=== PATIENT | female | born 1975 | race Caucasian/White ===

== ENCOUNTER → 2019-07-28 10:32 | Outpatient (CLI) | payer OTHER, SELFPAY ==
--- NOTE | ~2019-07-28 | MM_ITS ---
EXAMINATION: MM scrn erica implant BI w yana HISTORY: Screening mammogram TECHNIQUE: Craniocaudal and mediolateral oblique 3-D tomosynthesis images with implant displacement a nd synthetic 2-D images were generated. Craniocaudal and mediolateral oblique views of the breasts wi thout implant displacement were obtained using full field digital mammography. CAD analysis was submi tted and interpreted. COMPARISON: 06/09/2018, 05/09/2017, 05/01/2016 BREAST PARENCHYMAL COMPOSITION: There are scattered areas of fibroglandular density. FINDINGS: There is no evidence of suspicious mass, calcification, or architectural distortion to sugg est malignancy in either breast. There has been no suspicious interval change. IMPRESSION: 1. No mammographic evidence of malignancy. 2. Recommend routine screening mammography in one year. BI-RADS Category 2: Benign finding(s). Reviewed, dictated and finalized at location A. [employer]
== END ==
PROVIDERS: PCP Family Medicine; Visit Provider Obstetrics & Gynecology
DX: Z12.31 Encounter for screening mammogram for malignant neoplasm of breast (principal)
CPT/HCPCS: 77063; 77067

== ENCOUNTER → 2020-12-28 13:18 | Outpatient (CLI) | payer OTHER, SELFPAY ==
--- NOTE | ~2020-12-28 | MM_ITS ---
EXAMINATION: MM scrn erica implant BI w yana HISTORY: Screening mammogram TECHNIQUE: Craniocaudal and mediolateral oblique 3-D tomosynthesis images with implant displacement a nd synthetic 2-D images were generated. Craniocaudal and mediolateral oblique views of the breasts wi thout implant displacement were obtained using full field digital mammography. CAD analysis was submi tted and interpreted. COMPARISON: 07/28/2019, 06/09/2018, 05/09/2017 BREAST PARENCHYMAL COMPOSITION: There are scattered areas of fibroglandular density. FINDINGS: There is no evidence of suspicious mass, calcification, or architectural distortion to sugg est malignancy in either breast. There has been no suspicious interval change. IMPRESSION: 1. No mammographic evidence of malignancy. 2. Recommend routine screening mammography in one year. BI-RADS Category 1: Negative Reviewed, dictated and finalized at location A.
== END ==
PROVIDERS: PCP Family Medicine; Visit Provider Family Medicine
DX: Z12.31 Encounter for screening mammogram for malignant neoplasm of breast (principal)
CPT/HCPCS: 77063; 77067

== ENCOUNTER 2021-05-19 11:31 | Inpatient (IN) | payer OTHER, SELFPAY ==
--- NOTE | ~2021-05-19 | CT_ITS ---
EXAMINATION: CT abdomen pelvis w con INDICATION: Right lower quadrant pain and nausea TECHNIQUE: Computed tomographic images of the abdomen and pelvis were obtained after the administrati on of 100 cc of Omnipaque 350 intravenous contrast. The dose-length product (DLP) was 369.03 mGy-cm. Automated exposure control and iterative reconstruction technique were employed. COMPARISON: 05/11/2010 FINDINGS: The lung bases are clear. The heart size is normal. Bilateral breast implants are noted. Th e liver, spleen, gallbladder, and adrenal glands are normal. There is mild enlargement of the pancrea tic duct of unclear significance. Hypoattenuating lesions in the kidneys, measuring up to 3 mm on the left, are too small to characterize but likely represent cysts. There are peripelvic cysts of the ki dneys. The appendix is normal. There are colonic diverticula. There is wall thickening of the sigmoid colon with adjacent edematous stranding of the perisigmoid fat. A tiny focus of extraluminal gas is identified. No pericolic abscess is present. IMPRESSION: 1. Perforated sigmoid diverticulitis. 2. Mild enlargement of the pancreatic duct of unclear significance. Consider follow-up with nonemerge nt MRCP. Reviewed, dictated and finalized at location A. BLACK IMPRESSION: 1. Perforated sigmoid diverticulitis. 2. Mild enlargement of the pancreatic duct of unclear significance. Consider fo llow-up with nonemergent MRCP.
[2021-05-19 11:36] VITALS: BP 143/62; PULSE 110; RESP 18; TEMP 36.8; O2SAT 97
[2021-05-19 11:57] LABS: Basophils Percent Auto 0.1 % (0.2-1.2); Eosinophils Absolute Auto 0.2 K/mm3 (0-0.3); Eosinophils Percent Auto 1.5 % (0-4.4); Hematocrit 38.2 % (37.0-47.0); Hemoglobin 13.1 g/dL (12.0-15.0); Immature Granulocyte Absolute 0.05 K/mm3 (0.00-0.031); Immature Granulocyte Percent A 0.4 % (0-0.5); Lymphocytes Absolute Auto 1.73 K/mm3 (0.9-3.2); Lymphocytes Percent Auto 14.5 % (18.3-44.2); Mean Corpuscular HGB Conc 34.3 g/dl (32-36); Mean Corpuscular Hemoglobin 30.8 pg (26-34); Mean Corpuscular Volume 89.9 fl (80-100); Mean Platelet Volume 8.6 fl (7.4-10.4); Monocytes Absolute Auto 0.9 K/mm3 (0.1-0.6); Monocytes Percent Auto 7.4 % (2.6-8.5); Neutrophils Absolute Auto 9.1 K/mm3 (1.3-6.7); Neutrophils Percent Auto 76.1 % (45.5-73.1); Platelet Count Result 277 k/mm3 (150-375); Red Blood Count 4.25 M/mm3 (4.2-5.4); Red Cell Distribution Width 12.5 % (11.5-14.5)
[2021-05-19 12:08] LABS: Alanine Aminotransferase 38 U/L (4-35); Albumin Level 4.2 g/dL (3.5-5.1); Alkaline Phosphatase 61 U/L (38-126); Anion Gap 5 mmol/L (8-16); Aspartate Amino Transferase 28 U/L (14-36); Bilirubin,Total 0.4 mg/dL (0.2-1.3); Blood Urea Nitrogen 12 mg/dL (7-17); Calcium 9.7 mg/dL (8.4-10.2); Carbon Dioxide 28 mmol/L (22-30); Chloride 103 mmol/L (98-107); Estimated CRCL calculation 93 ml/min; Estimated Glomerular Filt Rate > 60; Glucose 92 mg/dL (65-110); Lipase 80 U/L (23-300); Potassium 3.7 mmol/L (3.4-5.0); Sodium 136 mmol/L (137-145)
[2021-05-19] MEDS: SODIUM CHLORIDE 0.9% IV 1,000 ML 999 ML IV CONT (12:18)
[2021-05-19] MEDS: MORPHINE SULFATE (*CRX) 4 MG/ML INJ IV PUSH ×3 (12:18→20:41)
[2021-05-19 12:46] LABS: Add Urine Microscopic? YES; Appearance Urine Cloudy (Clear); Bacteria Urine Trace /hpf; Bilirubin Urine Negative (Negative); Blood Urine 1+ (Negative); Color Urine Amber (Yellow); Glucose Urine UA Negative (Negative); Ketones Urine Trace mg/dL (Negative); Leukocyte Esterase Ur Trace LEU/UL (Negative); Mucus Urine Few /lpf; Nitrate Urine Negative (Negative); Protein Urine 1+ mg/dL (Negative); Specific Grav Ur 1.029 (1.001-1.035); Squamous Epithelial Cell Urine Many /hpf (Few); WBC Urine 16-20 /hpf
--- NOTE | 2021-05-19 12:59 | ED.ABDPAIN ---
HPI - Abdominal Pain General Chief Complaint: Abdominal Pain Stated Complaint: abdominal pain Time Seen by Provider: 05/19/21 12:00 Source: patient History of Present Illness HPI narrative: Patient presents with lower abdominal pain for the past few days. Her symptoms are getting progressively worse pain is achy, constant, worse with any sort of movement, radiates across her entire abdomen. Symptoms are associated with nausea she denies any vomiting or diarrhea. She reports subjective fevers at home but has not taken her temperature. Reports a history of denies any other abdominal surgeries. Related Data Home Medications Medication Instructions Recorded Confirmed dextroamphetamine-amphetamine 10 mg PO BID PRN 04/29/19 05/19/21 [Adderall] dextroamphetamine-amphetamine 20 mg PO QAM 04/29/19 05/19/21 [Adderall] mesalamine 1.2 g PO QAM 04/29/19 05/19/21 multivitamin with minerals 1 tablet PO DAILY 04/29/19 05/19/21 [Hair,Skin and Nails] spironolactone 100 mg PO QAM 04/29/19 05/19/21 venlafaxine 100 mg PO QAM 04/29/19 05/19/21 vitamin B complex [B 1 tablet PO DAILY 04/29/19 05/19/21 Complex-Vitamin B12] Allergies Allergy/AdvReac Type Severity Reaction Status Date / Time strawberry Allergy Mild LIPS SWELL Verified 05/19/21 15:27 Review of Systems Review of Systems: CONSTITUTIONAL: Denies fever, chills, or sweats. EYES: Denies visual changes, redness, or discharge. ENT: Denies rhinorrhea, congestion, sore throat, or otalgia. CARDIOVASCULAR: Denies chest pain, palpitations, or edema. RESPIRATORY: Denies cough or dyspnea. GASTROINTESTINAL: Reports abdominal pain and nausea GENITOURINARY: Denies dysuria or hematuria. SKIN: Denies rash or itching. MUSCULOSKELETAL: Denies back pain, joint pain, or myalgia. NEUROLOGIC: Denies headache, numbness, dizziness, or weakness. PSYCHIATRIC: Denies anxiety or depression. All systems reviewed & are unremarkable except as noted in HPI and below PMFSH Past Medical History Medical History (Updated 05/19/21 @ 14:36 by Enma Morales PA-C) Anxiety Attention deficit hyperactivity disorder Crohn's disease Depression Seasonal allergic rhinitis Tobacco abuse Surgical History Surgical History (Updated 05/19/21 @ 14:27 by Enma Morales PA-C) History of breast augmentation History of section History of colonoscopy History of dilation and curettage Family History Family History Father Family history of drug dependence Hypertension Carcinoma of colon Mother Lung cancer Sibling Patient's brother is in good health Grandparent Family history of malignant neoplasm of breast Other Family history of alcoholism Family history of malignant neoplasm Family history of mental disorder Social History Social History (Updated 05/19/21 @ 14:28 by Enma Morales PA-C) Social History: Surrogate decision maker: Code status: Smoking packs per day: 0.5 Smoking cigarettes per day: 10.0 Smoking status: Current every day smoker Tobacco type: cigarettes Second hand tobacco smoke exposure: Yes Alcohol intake: current Drinks per week: 2 Substance use: never Substance use type: does not use Additional living arrangements comments: Resides in [place] with her . Exam Narrative: GENERAL: Well-appearing, well-nourished, and in no acute distress. HEAD: Normocephalic, atraumatic. EYES: PERRLA and EOMI. ENT: Nares clear, no rhinorrhea or epistaxis. Mucous membranes moist. NECK: Supple. No masses. No JVD ABDOMEN: Moderate diffuse abdominal tenderness severe tenderness in the right lower quadrant and suprapubic area soft, nondistended, normal active bowel sounds. EXTREMITIES: Normal range of motion. No edema. SKIN: Warm, dry, no rash. NEURO: No focal deficits. Alert and oriented x3. PSYCH: Normal mood and affect. Course Reevaluation(s) Reeval
--- NOTE | 2021-05-19 14:00 | PM.IMHP ---
H&P: HPI History of Present Illness Date/Time: 05/19/21 14:00 Chief Complaint: Abdominal pain. Narrative: This is a very pleasant 46-year-old female with history of Crohn's disease who presented to the emergency department earlier today via private vehicle from home for evaluation of abdominal pain. evening not long after eating a Thanksgiving meal she developed discomfort throughout her lower abdomen that she describes as aching and somewhat cramping in nature. She was able to sleep that night and in fact yesterday morning she when out for [employer] Friday shopping however her pain returned and has been constant since that time. The pain does not radiate but seems to be centered more in the right lower quadrant at this time. The pain is worse with movement, palpation, and when driving over the speed bumps when coming to the hospital. She has not noticed any significant alleviating factors and she specifically denies that her pain is worse with food. She had sweats last evening and subjective fever though she did not take her temperature. Additionally she has had some nausea but no vomiting. She had a normal bowel movement yesterday morning. CT of the abdomen and pelvis today showed perforated sigmoid diverticulitis and she is being admitted in this setting. She has no prior history of diverticulitis nor she ever been told about diverticulosis though she has not had a surveillance colonoscopy done for her Crohn's for at least 6 years. She has not noticed blood or mucus in the stool. No vomiting. No documented fever. She denies significant bloating and distension. Review of Systems Review of Systems: Twelve systems were reviewed. She had sweats last evening but is not necessarily unusual for her to have sweats at nighttime. No recent cold or flu symptoms. She denies chest pain shortness of breath. No dysuria. Weight has remained stable. No known history of malignancy. She denies jaundice and pruritus. No history of hepatitis. She is on spironolactone for acne, as never been diagnosed with hypertension. Except as documented, all other systems were reviewed and are negative. [facility] Past Medical History Medical History Anxiety Attention deficit hyperactivity disorder Crohn's disease Depression Seasonal allergic rhinitis Tobacco abuse Surgical History Surgical History (Updated 05/19/21 @ 20:42 by Enma Morales PA-C) History of breast augmentation History of section History of colonoscopy History of dilation and curettage History of sinus surgery Family History Family History Father Family history of drug dependence Hypertension Carcinoma of colon Mother Lung cancer Sibling Patient's brother is in good health Grandparent Family history of malignant neoplasm of breast Other Family history of alcoholism Family history of malignant neoplasm Family history of mental disorder Social History Social History (Updated 05/19/21 @ 20:43 by Enma Morales PA-C) Social History: Surrogate decision maker: Frederick Carter, . Code status: Full code. Smoking packs per day: 1 Smoking cigarettes per day: 20.0 Years smoked: 25 Smoking pack-years: 25.00 Smoking status: Current every day smoker Tobacco type: cigarettes Second hand tobacco smoke exposure: Yes Alcohol intake: current Drinks per week: 2 Substance use: never Substance use type: does not use Additional living arrangements comments: Resides in [place] with her and children. Meds Home Medications and Allergies Home Medications Medication Instructions Recorded Confirmed Type dextroamphetamine-amphetamine 10 mg PO BID PRN 04/29/19 05/19/21 History [Adderall] dextroamphetamine-amphetamine 20 mg PO QAM 04/29/19 05/19/21 History [Adderall] mesalamine 1.2 g PO QAM 04/29/19 05/19/21
[2021-05-19] MEDS: SODIUM CHLORIDE 0.9% IV 1,000 ML 125 ML IV CONT (15:21)
--- NOTE | 2021-05-19 15:29 | ADMGEN ---
This patient, Edda Carter, was admitted to Medical Room 340-01. Patient/family oriented to hospital policies and general routines including ID bracelet, bed and alarms, visiting hours, pain management, procedures, bathroom and other care routines, personal items, smoking policy, room service/diet, and visiting hours. Information on how to activate the Rapid Response Team has been discussed. Patient/Family are encouraged to report perceived risks to care and to ask questions if they do not understand what they are told or what they should do.
[2021-05-19 15:36] VITALS: BMI 25.9
[2021-05-19 15:46] VITALS: BP 114/70; PULSE 96; RESP 18; TEMP 36.8; O2SAT 100
[2021-05-19] MEDS: FLUTICASONE PROPIONATE 0.05% NA SPR 16 GM BTL (*BKC) 1 SPRAY NASAL (17:10)
--- NOTE | 2021-05-19 18:15 | PM.CNGS ---
Assessment and Plan Assessment and plan (1) Perforation of sigmoid colon due to diverticulitis: Code(s): K57.20 - Diverticulitis of large intestine with perforation and abscess without bleeding Status: Acute Assessment and Plan: Micro perforation noted on CT scan, continue conservative management bowel rest and IV antibiotics, continue serial exams and labs, okay to have clear liquid diet (2) Crohn's disease: Code(s): K50.90 - Crohn's disease, unspecified, without complications Status: Chronic Assessment and Plan: stable, continue current treatment (3) Dilated pancreatic duct: Code(s): K86.89 - Other specified diseases of pancreas Status: Acute Assessment and Plan: unknown etiology, further evaluation as outpatient (4) Tobacco abuse: Code(s): Z72.0 - Tobacco use Status: Acute Assessment and Plan: discussed importance of cessation and increase of surgical risk History of Present Illness Consult details Consult date: 05/19/21 Reason for consult: abdominal pain Requesting physician: Vivi Christianson MD Narrative: The patient is a 46-year-old female presenting to the emergency department complaining of severe lower abdominal pain, left greater than right. Patient reports the pain has been progressively worsening over the last few days and is now constant, sharp. The patient reports associated nausea and poor appetite. The patient reports subjective fevers and chills at home. The patient denies any previous episodes. Review of Systems Constitutional: Constitutional: Reports anorexia, Reports chills, Reports fatigue, Reports fever(s), Reports lethargy, Reports malaise, Denies night sweats, Reports poor appetite, Reports weakness, Denies weight gain and Denies weight loss Eyes: Eyes: Reports no additional eye complaints ENT: Reports system reviewed and no additional complaints, except as documented Cardiovascular: Cardiovascular: Reports no additional cardiovascular complaints Respiratory: Respiratory: Reports no additional respiratory complaints Gastrointestinal: Gastrointestinal: Reports as per HPI, Reports abdominal pain, Denies bloating, Denies change in bowel habits, Denies change in stool character, Reports GI cramping, Reports nausea, Denies vomiting and Denies hematemesis Genitourinary: Genitourinary: Reports no additional female genitourinary complaints Musculoskeletal: Musculoskeletal: Reports no additional musculoskeletal complaints Integumentary/Breasts: Skin/Breast: Reports system reviewed and no additional complaints, except as docu Neurologic: Reports system reviewed and no additional complaints, except as documented Psychiatric: Psychiatric: Reports no additional psychiatric complaints Endocrine: Endocrine: Reports no additional endocrine complaints Hematologic/Lymphatic: Hematologic/Lymphatic: Reports no additional hematologic/lymphatic complaints Allergic/Immunologic: Allergic/Immunologic: Reports no additional allergic/immunologic complaints PMFSH Past Medical History Medical History Anxiety Attention deficit hyperactivity disorder Crohn's disease Depression Seasonal allergic rhinitis Tobacco abuse Surgical History Surgical History History of breast augmentation History of section History of colonoscopy History of dilation and curettage Family History Family History Father Family history of drug dependence Hypertension Carcinoma of colon Mother Lung cancer Sibling Patient's brother is in good health Grandparent Family history of malignant neoplasm of breast Other Family history of alcoholism Family history of malignant neoplasm Family history of mental disorder Social History Social History (Reviewed 05/19/21 @ 18:17 by Jossy Vega
[2021-05-19 20:00] VITALS: PULSE 97; RESP 18; O2SAT 98
[2021-05-19] MEDS: VENLAFAXINE HCL XR 75 MG CAP.ER.24H PO (20:37)
[2021-05-19 21:01] VITALS: BP 110/63; PULSE 97; RESP 18; TEMP 37.4; O2SAT 98
[2021-05-20] MEDS: SODIUM CHLORIDE 0.9% IV 1,000 ML 75 ML IV CONT (02:41)
[2021-05-20 05:54] LABS: Hematocrit 33.8 % (37.0-47.0); Hemoglobin 11.4 g/dL (12.0-15.0); Mean Corpuscular HGB Conc 33.7 g/dl (32-36); Mean Corpuscular Hemoglobin 30.5 pg (26-34); Mean Corpuscular Volume 90.4 fl (80-100); Platelet Count Result 246 k/mm3 (150-375); Red Blood Count 3.74 M/mm3 (4.2-5.4); Red Cell Distribution Width 12.3 % (11.5-14.5); White Blood Count 9.8 K/mm3 (4.5-10.0)
[2021-05-20 06:00] VITALS: BP 97/61; PULSE 88; RESP 18; TEMP 36.2; O2SAT 97
[2021-05-20 06:21] LABS: Alanine Aminotransferase 30 U/L (4-35); Albumin Level 3.3 g/dL (3.5-5.1); Alkaline Phosphatase 58 U/L (38-126); Anion Gap 5 mmol/L (8-16); Aspartate Amino Transferase 24 U/L (14-36); Bilirubin,Total 0.3 mg/dL (0.2-1.3); Blood Urea Nitrogen 6 mg/dL (7-17); Calcium 8.5 mg/dL (8.4-10.2); Carbon Dioxide 24 mmol/L (22-30); Chloride 107 mmol/L (98-107); Estimated CRCL calculation 110 ml/min; Estimated Glomerular Filt Rate > 60; Glucose 105 mg/dL (65-110); Potassium 3.8 mmol/L (3.4-5.0); Sodium 136 mmol/L (137-145)
[2021-05-20 08:00] LABS: Lipase 36 U/L (23-300)
--- NOTE | 2021-05-20 08:30 | PM.PNGS ---
Progress Note: A&P Assessment and Plan (1) Perforation of sigmoid colon due to diverticulitis: Code(s): K57.20 - Diverticulitis of large intestine with perforation and abscess without bleeding Status: Acute Assessment and Plan: exam improved, leukocytosis resolved, cont abx, low residual diet, home soon if cont to improve Subjective Subjective Date/Time Seen: 05/20/21 08:30 feels better, pain improved, donna clears Review of Systems Review of Systems: All systems reviewed & are unremarkable except as noted in HPI and below Exam Const: General: cooperative, comfortable and no acute distress Resp: Effort & Inspection: normal respiratory effort Auscultation: clear to auscultation bilaterally Cardio: Rate: regular rate Rhythm: regular rhythm GI: Inspection: normal to inspection and non-distended GI Palp: Yes Soft to palpation, Yes Tenderness to palpation present (GI), No Guarding due to palpation present (GI) and No Rigid due to palpation Other: mod TTP LLQ, no peritoneal signs Objective Data Vital Signs Vital Signs: Vital Signs - 24 hr 05/19/21 11:36 05/19/21 15:46 05/19/21 20:00 Temperature 36.8 C 36.8 C Pulse Rate 110 H 96 97 Respiratory Rate 18 18 18 Blood Pressure 143/62 H 114/70 Pulse Oximetry 97 100 98 05/19/21 21:01 05/20/21 06:00 Temperature 37.4 C 36.2 C L Pulse Rate 97 88 Respiratory Rate 18 18 Blood Pressure 110/63 97/61 L Pulse Oximetry 98 97 Intake/Output Intake/Output: Intake & Output 05/17/21 05/18/21 05/19/21 05/20/21 23:59 23:59 23:59 23:59 Intake Total 1550 3635 Output Total 0 Balance 1550 3635 Meds/Results Medications: Active Medications Generic Name Dose Route Start Last Admin Trade Name Freq PRN Reason Stop Dose Admin Fluticasone Propionate 1 spray 05/19/21 17:00 05/19/21 17:10 Fluticasone Propionate 0.05% Na Spr 16 Gm Btl (*Bkc) NASAL 1 spray BID VEDA Administration Piperacillin/Tazobactam/Dextrose 3.375 gm in 50 mls @ 100 mls/hr 05/19/21 18:00 05/20/21 05:44 Zosyn 3.375 Gm/D5w 50ml Pm IVPB 100 mls/hr Q6H VEDA Administration Acetaminophen 1,000 mg in 100 mls @ 400 mls/hr 05/19/21 13:12 Ofirmev 1,000 Mg Ivpb IVPB 05/20/21 13:11 Q6H PRN Mild Pain (1-3) or Fever Sodium Chloride 1,000 mls @ 75 mls/hr 05/19/21 13:15 05/20/21 02:41 Normal Saline Iv IV CONT 75 mls/hr .[id number] VEDA Administration Mesalamine 1,200 mg 05/20/21 09:00 Mesalamine 400 Mg Delayed Release Capsule PO 06/19/21 08:59 QAM [facility] Morphine Sulfate 4 mg 05/19/21 13:12 05/19/21 20:41 Morphine Sulfate (*Crx) 4 Mg/Ml Inj IV PUSH 4 mg Q2H PRN Administration Pain Rated 7-10 Multivitamins/Calcium 1 tablet 05/20/21 09:00 Therapeutic Multivitamins/Minerals Tab (*Bkc) PO DAILY [facility] Ondansetron HCl 4 mg 05/19/21 13:12 Ondansetron Inj 4 Mg/2 Ml Vial IV PUSH Q4H PRN Nausea Spironolactone 100 mg 05/20/21 09:00 Spironolactone 50 Mg Tablet PO QAM [facility] Venlafaxine HCl 75 mg 05/19/21 21:00 05/19/21 20:37 Venlafaxine Hcl Xr 75 Mg Cap.Er.24h PO 75 mg Q12HR [facility]EDA Administration Vitamin B Complex 1 cap 05/20/21 09:00 Vitamin B Complex Capsule PO DAILY [facility] Radiology Results: ITS Impressions Abdomen/Pelvis CT 05/19/21 12:40 IMPRESSION: 1. Perforated sigmoid diverticulitis. 2. Mild enlargement of the pancreatic duct of unclear significance. Consider follow-up with nonemergent MRCP. Labs Labs: Laboratory Results - last 24 hr 05/19/21 05/19/21 05/19/21 11:50 11:50 12:17 WBC 12.0 H RBC 4.25 Hgb 13.1 Hct 38.2 MCV 89.9 MCH 30.8 MCHC 34.3 RDW 12.5 Plt Count 277 MPV 8.6 Immature Gran % (Auto) 0.4 Neut % (Auto) 76.1 H Lymph % (Auto) 14.5 L Dunn % (Auto) 7.4 Eos % (Auto) 1.5 Baso % (Auto) 0.1 L Lymph # (Auto) 1.73 Dunn # (Auto) 0.9 H Eos # (Auto) 0.2 Baso # (Auto) 0.0 Abs [place]
[2021-05-20] MEDS: MESALAMINE 400 MG DELAYED RELEASE CAPSULE 1200 MG PO (09:00)
[2021-05-20] MEDS: FLUTICASONE PROPIONATE 0.05% NA SPR 16 GM BTL (*BKC) 1 SPRAY NASAL ×2 (09:01→17:59)
[2021-05-20] MEDS: THERAPEUTIC MULTIVITAMINS/MINERALS TAB (*BKC) 1 TABLET PO (09:01)
[2021-05-20] MEDS: SPIRONOLACTONE 50 MG TABLET 100 MG PO (09:01)
[2021-05-20] MEDS: VITAMIN B COMPLEX CAPSULE 1 CAP PO (09:01)
[2021-05-20] MEDS: VENLAFAXINE HCL XR 75 MG CAP.ER.24H PO ×2 (09:02→20:59)
[2021-05-20] MEDS: MORPHINE SULFATE (*CRX) 4 MG/ML INJ IV PUSH ×3 (09:32→18:48)
--- NOTE | 2021-05-20 09:40 | PM.IMPN ---
Progress Note: A&P Assessment and Plan (1) Perforation of sigmoid colon due to diverticulitis: Code(s): K57.20 - Diverticulitis of large intestine with perforation and abscess without bleeding Status: Acute Assessment and Plan: The patient presented to the hospital for evaluation of abdominal pain for the last couple of days, found to have micro perforation on CT scan. Leukocytosis improved, still elevation neutrophil count. Labs showing she is well hydrated. Continue conservative tx with IV Zosyn IV #2 General surgery evaluated the patient and has advanced her clear liquid diet to a low fiber diet Continue Antiemetics and analgesics are available as needed. Continue monitoring pain, vitals, labs daily (2) Dilated pancreatic duct: Code(s): K86.89 - Other specified diseases of pancreas Status: Acute Assessment and Plan: Regarding mild enlargement of the pancreatic duct, the patient wishes to follow-up with her primary care provider as she wants to go somewhere where she can have an open MRI due to claustrophobia and anxiety. She understands the importance of following up with this imaging as an outpatient (3) Elevated blood pressure reading: Code(s): R03.0 - Elevated blood-pressure reading, without diagnosis of hypertension Status: Acute Assessment and Plan: Her blood pressure was a bit elevated on arrival, likely due to pain. Currently her blood pressure is stable 97/61. Will continue IV fluids at this time. She is not feeling lightheaded or dizzy. Will continue monitoring blood pressure make adjustments if needed. (4) Crohn's disease: Code(s): K50.90 - Crohn's disease, unspecified, without complications Status: Chronic Assessment and Plan: Her Crohn's disease is stable on mesalamine and she has not had problems for many years. (5) Tobacco abuse: Code(s): Z72.0 - Tobacco use Status: Acute Assessment and Plan: Smoking cessation is encouraged and was discussed for 3 minutes. She denies the need for nicotine patch. Time Spent With Patient Time with patient: 25 - 35 minutes Subjective Date/time seen: 05/20/21 09:40 Interval history: Date of Service 05/20/21: Patient reports feeling slightly better today. Currently your pain is 6/10 to her suprapubic area. She does report a subjective fever last night, denies any chills. Denies any worsening abdominal pain since arrival. She has been able to tolerate the clear liquid diet without any issues. Denies any chest pain, shortness of breath, cough, nausea, vomiting, leg swelling, calf pain, or any other symptoms at this time Review of Systems Review of Systems: All systems reviewed & are unremarkable except as noted in HPI and below Exam Narrative: General: 46-year-old woman sitting up in bed on her phone. Appears comfortable. In no acute distress. Skin: No jaundice or cyanosis. Good skin turgor. Neck: Full range of motion. Supple. Respiratory: Lungs are clear to auscultation bilaterally. No bony chest wall tenderness. Cardiovascular: The heart has a regular rate and rhythm without murmur. Lower extremities: No lower extremity edema. Distal pulses are easily palpated. No calf tenderness to palpation. Gastrointestinal: Tenderness palpation suprapubic area. No rebound or guarding. The abdomen is otherwise soft, nondistended with active bowel sounds. Psychiatric: Lucid and oriented. Memory intact. Neurologic: No focal deficits. Speech is clear. No facial drooping. Objective Data Vital Signs Vital Signs: Vital Signs - 24 hr 05/19/21 11:36 05/19/21 15:46 05/19/21 20:00 Temperature 98.3 F 98.2 F Pulse Rate 110 H 96 97 R
[2021-05-20 14:00] VITALS: BP 100/58; PULSE 90; RESP 16; TEMP 36.9; O2SAT 98
[2021-05-20 20:00] VITALS: PULSE 89; RESP 16; O2SAT 98
[2021-05-20 20:59] VITALS: PULSE 89; RESP 16; O2SAT 98
[2021-05-20 21:21] VITALS: BP 102/42; PULSE 84; RESP 18; TEMP 36.6; O2SAT 98
[2021-05-21 05:41] VITALS: BP 110/48; PULSE 74; RESP 16; TEMP 36.4; O2SAT 97
[2021-05-21 06:02] LABS: Basophils Percent Auto 0.4 % (0.2-1.2); Eosinophils Absolute Auto 0.2 K/mm3 (0-0.3); Eosinophils Percent Auto 3.2 % (0-4.4); Hematocrit 34.5 % (37.0-47.0); Hemoglobin 11.3 g/dL (12.0-15.0); Immature Granulocyte Absolute 0.02 K/mm3 (0.00-0.031); Immature Granulocyte Percent A 0.3 % (0-0.5); Lymphocytes Absolute Auto 1.64 K/mm3 (0.9-3.2); Mean Corpuscular HGB Conc 32.8 g/dl (32-36); Mean Corpuscular Hemoglobin 30.6 pg (26-34); Mean Corpuscular Volume 93.5 fl (80-100); Mean Platelet Volume 9.1 fl (7.4-10.4); Monocytes Absolute Auto 0.5 K/mm3 (0.1-0.6); Monocytes Percent Auto 6.4 % (2.6-8.5); Neutrophils Absolute Auto 5.1 K/mm3 (1.3-6.7); Neutrophils Percent Auto 67.7 % (45.5-73.1); Platelet Count Result 254 k/mm3 (150-375); Red Blood Count 3.69 M/mm3 (4.2-5.4); Red Cell Distribution Width 12.5 % (11.5-14.5); White Blood Count 7.5 K/mm3 (4.5-10.0)
[2021-05-21 06:13] LABS: Anion Gap 5 mmol/L (8-16); Blood Urea Nitrogen 6 mg/dL (7-17); Calcium 8.9 mg/dL (8.4-10.2); Carbon Dioxide 24 mmol/L (22-30); Chloride 106 mmol/L (98-107); Estimated CRCL calculation 110 ml/min; Estimated Glomerular Filt Rate > 60; Glucose 105 mg/dL (65-110); Potassium 4.2 mmol/L (3.4-5.0); Sodium 135 mmol/L (137-145)
[2021-05-21 08:00] VITALS: PULSE 74; RESP 16; O2SAT 97
[2021-05-21] MEDS: MORPHINE SULFATE (*CRX) 4 MG/ML INJ IV PUSH ×4 (08:20→20:35)
[2021-05-21] MEDS: MESALAMINE 400 MG DELAYED RELEASE CAPSULE 1200 MG PO (08:23)
[2021-05-21] MEDS: THERAPEUTIC MULTIVITAMINS/MINERALS TAB (*BKC) 1 TABLET PO (08:24)
[2021-05-21] MEDS: VENLAFAXINE HCL XR 75 MG CAP.ER.24H PO ×2 (08:24→20:36)
[2021-05-21] MEDS: FLUTICASONE PROPIONATE 0.05% NA SPR 16 GM BTL (*BKC) 1 SPRAY NASAL (08:24)
[2021-05-21] MEDS: VITAMIN B COMPLEX CAPSULE 1 CAP PO (08:24)
[2021-05-21] MEDS: SPIRONOLACTONE 50 MG TABLET 100 MG PO (08:24)
--- NOTE | 2021-05-21 11:04 | PM.IMPN ---
Progress Note: A&P Assessment and Plan (1) Perforation of sigmoid colon due to diverticulitis: Code(s): K57.20 - Diverticulitis of large intestine with perforation and abscess without bleeding Status: Acute Assessment and Plan: The patient presented to the hospital for evaluation of abdominal pain for the last couple of days, found to have micro perforation on CT scan. Leukocytosis improved, still elevation neutrophil count. Labs showing she is well hydrated. Continue conservative tx with IV Zosyn IV #3 General surgery evaluated the patient and has advanced her to a low fiber diet Continue Antiemetics and analgesics are available as needed. Still having significant pain, will continue monitoring in the hospital until pain is better controlled and make sure she does not have any worsening symptoms from her perf to where we would need to rescan her. Continue monitoring pain, vitals, labs daily (2) Dilated pancreatic duct: Code(s): K86.89 - Other specified diseases of pancreas Status: Acute Assessment and Plan: Regarding mild enlargement of the pancreatic duct, the patient wishes to follow-up with her primary care provider as she wants to go somewhere where she can have an open MRI due to claustrophobia and anxiety. Discussed with the patient who would like to try MRI, but when we called down her head would be in the tunnel and she states her anxiety and claustrophobia would be to high and she would not be able to do it. She understands the importance of following up with this imaging as an outpatient (3) Elevated blood pressure reading: Code(s): R03.0 - Elevated blood-pressure reading, without diagnosis of hypertension Status: Acute Assessment and Plan: Her blood pressure was a bit elevated on arrival, likely due to pain. Currently her blood pressure is stable 110/48. Will continue IV fluids at this time. She is not feeling lightheaded or dizzy. Will continue monitoring blood pressure make adjustments if needed. (4) Crohn's disease: Code(s): K50.90 - Crohn's disease, unspecified, without complications Status: Chronic Assessment and Plan: Her Crohn's disease is stable on mesalamine and she has not had problems for many years. (5) Tobacco abuse: Code(s): Z72.0 - Tobacco use Status: Acute Assessment and Plan: Smoking cessation is encouraged and was discussed for 3 minutes. She denies the need for nicotine patch. Additional Plan Time Spent With Patient Time with patient: 25 - 35 minutes Subjective Date/time seen: 05/21/21 11:04 Interval history: Date of Service 05/21/21: Patient is still having 6/10 abdominal pain, after taking a shower and fixing her bed. She is also having some pain with eating. Denies any worsening pain, fever, chills. Denies any chest pain, shortness of breath, cough, nausea, vomiting, leg swelling, calf pain, or any other symptoms at this time Review of Systems Review of Systems: All systems reviewed & are unremarkable except as noted in HPI and below Exam Narrative: General: 46-year-old woman sitting up in bed appears slightly uncomfortable. In no acute distress. Skin: No jaundice or cyanosis. Good skin turgor. Neck: Full range of motion. Supple. Respiratory: Lungs are clear to auscultation bilaterally. No bony chest wall tenderness. Cardiovascular: The heart has a regular rate and rhythm without murmur. Lower extremities: No lower extremity edema. Distal pulses are easily palpated. No calf tenderness to palpation. Gastrointestinal: Tenderness palpation suprapubic area. No rebound or guarding. The abdomen is otherwise soft, nondistended with active bowel
--- NOTE | 2021-05-21 12:08 | PM.PNGS ---
Progress Note: A&P Assessment and Plan (1) Perforation of sigmoid colon due to diverticulitis: Code(s): K57.20 - Diverticulitis of large intestine with perforation and abscess without bleeding Status: Acute Assessment and Plan: cont conservative mgmt, low residual diet, IV abx, serial exams Subjective Subjective Date/Time Seen: 05/21/21 12:08 Pt donna low fiber diet, still quite uncomfortable especially c activity Review of Systems Review of Systems: All systems reviewed & are unremarkable except as noted in HPI and below Exam Const: General: cooperative, no acute distress, alert, awake and Physically active Nutritional Appearance: average body habitus Orientation/consciousness: patient oriented x3 Resp: Effort & Inspection: normal respiratory effort Auscultation: clear to auscultation bilaterally Cardio: Rate: regular rate Rhythm: regular rhythm GI: Inspection: normal to inspection and distended GI Palp: Yes Soft to palpation, Yes Tenderness to palpation present (GI), No Guarding due to palpation present (GI) and No Rigid due to palpation Other: mod TTP LLQ, no peritoneal signs Objective Data Vital Signs Vital Signs: Vital Signs - 24 hr 05/20/21 14:00 05/20/21 20:00 05/20/21 20:59 Temperature 36.9 C Pulse Rate 90 89 89 Respiratory Rate 16 16 16 Blood Pressure 100/58 L Pulse Oximetry 98 98 98 05/20/21 21:21 05/21/21 05:41 05/21/21 08:00 Temperature 36.6 C 36.4 C Pulse Rate 84 74 74 Respiratory Rate 18 16 16 Blood Pressure 102/42 L 110/48 L Pulse Oximetry 98 97 97 Intake/Output Intake/Output: Intake & Output 05/18/21 05/19/21 05/20/21 05/21/21 23:59 23:59 23:59 23:59 Intake Total 1550 5505 710 Output Total 0 Balance 1550 5505 710 Meds/Results Medications: Active Medications Generic Name Dose Route Start Last Admin Trade Name Freq PRN Reason Stop Dose Admin Acetaminophen 650 mg 05/21/21 11:05 Acetaminophen 325 Mg Tablet PO Q4H PRN Headache, pain 1-3, fever Hydrocodone Bitart/Acetaminophen 1 tab 05/21/21 11:05 Hydrocodone/Acetaminophen (*Crx) 5-325 Mg Tablet PO Q4H PRN Pain Rated 4-6 Fluticasone Propionate 1 spray 05/19/21 17:00 05/21/21 08:24 Fluticasone Propionate 0.05% Na Spr 16 Gm Btl (*Bkc) NASAL 1 spray BID VEDA Administration Piperacillin/Tazobactam/Dextrose 3.375 gm in 50 mls @ 100 mls/hr 05/19/21 18:00 05/21/21 06:54 Zosyn 3.375 Gm/D5w 50ml Pm IVPB Infused Q6H VEDA Infusion Mesalamine 1,200 mg 05/20/21 09:00 05/21/21 08:23 Mesalamine 400 Mg Delayed Release Capsule PO 06/19/21 08:59 1,200 mg QAM VEDA Administration Morphine Sulfate 4 mg 05/19/21 13:12 05/21/21 11:15 Morphine Sulfate (*Crx) 4 Mg/Ml Inj IV PUSH 4 mg Q2H PRN Administration Pain Rated 7-10 Multivitamins/Calcium 1 tablet 05/20/21 09:00 05/21/21 08:24 Therapeutic Multivitamins/Minerals Tab (*Bkc) PO 1 tablet DAILY VEDA Administration Ondansetron HCl 4 mg 05/19/21 13:12 Ondansetron Inj 4 Mg/2 Ml Vial IV PUSH Q4H PRN Nausea Spironolactone 100 mg 05/20/21 09:00 05/21/21 08:24 Spironolactone 50 Mg Tablet PO 100 mg QAM VEDA Administration Venlafaxine HCl 75 mg 05/19/21 21:00 05/21/21 08:24 Venlafaxine Hcl Xr 75 Mg Cap.Er.24h PO 75 mg Q12HR VEDA Administration Vitamin B Complex 1 cap 05/20/21 09:00 05/21/21 08:24 Vitamin B Complex Capsule PO 1 cap DAILY VEDA Administration Radiology Results: ITS Impressions Abdomen/Pelvis CT 05/19/21 12:40 IMPRESSION: 1. Perforated sigmoid diverticulitis. 2. Mild enlargement of the pancreatic duct of unclear significance. Consider follow-up with nonemergent MRCP. Labs Labs: Laboratory Results - last 24 hr 05/21/21 05/21/21 05:23 05:23 WBC 7.5 RBC 3.69 L Hgb 11.3 L Hct 34.5 L MCV 93.5 MCH 30.6 MCHC 32.8 RDW 12.5 Plt Count 254 MPV 9.1 Immature Gran % (Auto) 0.3 Cu[place]emoc
[2021-05-21 14:26] VITALS: BP 132/48; PULSE 64; RESP 18; TEMP 36.2; O2SAT 100
[2021-05-21 19:18] VITALS: BP 103/58; PULSE 74; RESP 18; TEMP 36.4; O2SAT 100
[2021-05-21 20:00] VITALS: PULSE 74; RESP 18; O2SAT 100
[2021-05-22 04:37] VITALS: BP 123/72; PULSE 89; RESP 16; TEMP 36.1; O2SAT 98
[2021-05-22 05:52] LABS: Hematocrit 36.2 % (37.0-47.0); Hemoglobin 11.7 g/dL (12.0-15.0); Mean Corpuscular HGB Conc 32.3 g/dl (32-36); Mean Corpuscular Hemoglobin 30.4 pg (26-34); Platelet Count Result 274 k/mm3 (150-375); Red Blood Count 3.85 M/mm3 (4.2-5.4); Red Cell Distribution Width 12.6 % (11.5-14.5)
[2021-05-22 05:53] LABS: Anion Gap 7 mmol/L (8-16); Blood Urea Nitrogen 8 mg/dL (7-17); Calcium 9.3 mg/dL (8.4-10.2); Carbon Dioxide 26 mmol/L (22-30); Chloride 105 mmol/L (98-107); Estimated CRCL calculation 93 ml/min; Estimated Glomerular Filt Rate > 60; Glucose 102 mg/dL (65-110); Potassium 4.5 mmol/L (3.4-5.0); Sodium 138 mmol/L (137-145)
[2021-05-22] MEDS: HYDROcodone/acetaminophen (*CRX) 5-325 MG TABLET 1 TAB PO ×2 (06:59→15:44)
[2021-05-22] MEDS: FLUTICASONE PROPIONATE 0.05% NA SPR 16 GM BTL (*BKC) 1 SPRAY NASAL (08:18)
[2021-05-22] MEDS: MESALAMINE 400 MG DELAYED RELEASE CAPSULE 1200 MG PO (08:20)
[2021-05-22] MEDS: SPIRONOLACTONE 50 MG TABLET 100 MG PO (08:20)
[2021-05-22] MEDS: VENLAFAXINE HCL XR 75 MG CAP.ER.24H PO (08:20)
[2021-05-22] MEDS: VITAMIN B COMPLEX CAPSULE 1 CAP PO (08:21)
[2021-05-22] MEDS: THERAPEUTIC MULTIVITAMINS/MINERALS TAB (*BKC) 1 TABLET PO (08:21)
--- NOTE | 2021-05-22 09:25 | PM.PNGS ---
Progress Note: A&P Assessment and Plan (1) Perforation of sigmoid colon due to diverticulitis: Code(s): K57.20 - Diverticulitis of large intestine with perforation and abscess without bleeding Status: Acute Assessment and Plan: Continues to clinically improve with pain more controlled today. Tolerating low-fiber diet. WBC normal and remains afebrile. Okay to discharge today from a surgical standpoint. Follow-up in [address] Benton. Continue low-fiber diet for 2 weeks. Continue oral antibiotics for another 7 days. Additional Plan I have discussed the patient's case and plan of care with Dr. Benton. Subjective Subjective Date/Time Seen: 05/22/21 09:15 Patient reports: no new complaints, feels better, pain is less, tolerating a regular diet, flatus, bowel movement and afebrile Interval history: This is a 46-year-old female who presented to the ER for abdominal pain and was found to have acute sigmoid diverticulitis with microperforation. She as been admitted and treated with broad-spectrum IV antibiotics. Her diet has slowly been advanced and she is currently eating a low-fiber diet. Chart reviewed. She is now seen and examined this morning. She reports her abdominal pain has improved today. She denies any nausea or vomiting. Her abdominal bloating has reportedly improved. She is tolerating a low-fiber diet without any issues. She reports having a dose of MiraLax yesterday and has had multiple bowel movements overnight. She does report her pain increased with bowel movements, but quickly improved. No other complaints at this time. Review of Systems Review of Systems: All systems reviewed & are unremarkable except as noted in HPI and below Gastrointestinal: Gastrointestinal: Reports as per HPI, Reports no additional gastrointestinal complaints, Denies melena and Denies hematochezia Exam Const: General: comfortable, no acute distress, alert and awake Orientation/consciousness: patient oriented x3 GI: Inspection: normal to inspection and other (only mildly distended) GI Palp: Yes Soft to palpation, Yes Tenderness to palpation present (GI) (RLQ and LLQ, reportedly improved per patient), No Guarding due to palpation present (GI) and No Rebound tenderness present Auscultation: normal bowel sounds Rectal Exam: deferred Neuro: General: moves all extremities and no focal motor deficits Extrem: General: normal to inspection Psych: Mental Status: mental status grossly normal Insight: Good insight present (Psych) Judgement: Good judgement present (Psych) Objective Data Vital Signs Vital Signs: Vital Signs - 24 hr 05/21/21 14:26 05/21/21 19:18 05/21/21 20:00 Temperature 97.2 F L 97.5 F L Pulse Rate 64 74 74 Respiratory Rate 18 18 18 Blood Pressure 132/48 L 103/58 L Pulse Oximetry 100 100 100 05/22/21 04:37 Temperature 97 F L Pulse Rate 89 Respiratory Rate 16 Blood Pressure 123/72 Pulse Oximetry 98 Intake/Output Intake/Output: Intake & Output 05/19/21 05/20/21 05/21/21 05/22/21 23:59 23:59 23:59 23:59 Intake Total 1550 5505 1530 760 Output Total 0 Balance 1550 5505 1530 760 Meds/Results Medications: Active Medications Generic Name Dose Route Start Last Admin Trade Name Freq PRN Reason Stop Dose Admin Acetaminophen 650 mg 05/21/21 11:05 Acetaminophen 325 Mg Tablet PO Q4H PRN Headache, pain 1-3, fever Hydrocodone Bitart/Acetaminophen 1 tab 05/21/21 11:05 05/22/21 06:59 Hydrocodone/Acetaminophen (*Crx) 5-325 Mg Tablet PO 1 tab Q4H PRN Administration Pain Rated 4-6 Fluticasone Propionate 1 spray 05/19/21 17:00 05/22/21 08:18 Fluticasone Propionate 0.05% Na Spr 16 Gm Btl (*Bkc) NASAL 1 spray BID VEDA Administration Piperacillin/Tazobactam/Dextrose 3.375 gm in 50 mls @ 100 mls/hr 05/19/21 18:00 05/22/21 06:50 Zosyn 3.375 Gm/D5w 50ml Pm IVPB Infused Q6H VEDA Infusion Mesalamine 1,200 mg 05/20/21 09:00 05/22/21 08:
[2021-05-22] MEDS: HYDROcodone/acetaminophen (*CRX) 5-325 MG TABLET 2 TAB PO (12:22)
[2021-05-22 14:00] VITALS: BP 112/57; PULSE 68; RESP 18; TEMP 37; O2SAT 98
--- NOTE | 2021-05-22 14:48 | PM.IMPN ---
Progress Note: A&P Assessment and Plan (1) Perforation of sigmoid colon due to diverticulitis: Code(s): K57.20 - Diverticulitis of large intestine with perforation and abscess without bleeding Status: Acute Assessment and Plan: The patient presented to the hospital for evaluation of abdominal pain for the last couple of days, found to have micro perforation on CT scan. Leukocytosis improved Continue conservative tx with IV Zosyn General surgery evaluated the patient and has advanced her to a low fiber diet, tolerating okay Continue Antiemetics and analgesics are available as needed. Still having significant pain, will continue monitoring in the hospital until pain is better controlled and make sure she does not have any worsening symptoms from her perf to where we would need to rescan her. Still getting morphine will transition to percocet/norco Continue monitoring pain, vitals, labs daily (2) Dilated pancreatic duct: Code(s): K86.89 - Other specified diseases of pancreas Status: Acute Assessment and Plan: Regarding mild enlargement of the pancreatic duct, the patient wishes to follow-up with her primary care provider as she wants to go somewhere where she can have an open MRI due to claustrophobia and anxiety. Discussed with the patient who would like to try MRI, but when we called down her head would be in the tunnel and she states her anxiety and claustrophobia would be to high and she would not be able to do it. She understands the importance of following up with this imaging as an outpatient (3) Elevated blood pressure reading: Code(s): R03.0 - Elevated blood-pressure reading, without diagnosis of hypertension Status: Acute Assessment and Plan: Her blood pressure was a bit elevated on arrival, likely due to pain. Currently her blood pressure is stable 123/72. Will continue monitoring blood pressure make adjustments if needed. (4) Crohn's disease: Code(s): K50.90 - Crohn's disease, unspecified, without complications Status: Chronic Assessment and Plan: Her Crohn's disease is stable on mesalamine and she has not had problems for many years. (5) Tobacco abuse: Code(s): Z72.0 - Tobacco use Status: Acute Assessment and Plan: Smoking cessation is encouraged and was discussed for 3 minutes. She denies the need for nicotine patch. Additional Plan Subjective Date/time seen: 05/22/21 14:48 Interval history: Patient is still having 6-7/10 abdominal pain, after taking a shower and fixing her bed. Denies fever, chills. Did have several episodes of diarrhea last night. Review of Systems Review of Systems: General: Denies fevers, chills Eyes: Denies vision changes or eye pain ENT: Denies nasal congestion or sore throat Respiratory: Denies cough or shortness of breath Cardiovascular: Denies chest pain, palpitations, or lower extremity edema Gastrointestinal: + abdominal pain, no vomiting, + diarrhea Genitourinary: Denies dysuria or urinary frequency Musculoskeletal: Denies back pain or muscle aches Neurological: Denies headache, paraesthesias, or motor weakness Integumentary: Denies rash or other skin lesions Exam Narrative: General: 46-year-old woman sitting up in bed appears slightly uncomfortable. In no acute distress. Skin: No jaundice or cyanosis. Good skin turgor. Neck: Full range of motion. Supple. Respiratory: Lungs are clear to auscultation bilaterally. No bony chest wall tenderness. Cardiovascular: The heart has a regular rate and rhythm without murmur. Lower extremities: No lower extremity edema. Distal pulses are easily palpated. No calf tenderness to palpation. G
[2021-05-22 19:19] VITALS: BP 119/57; PULSE 62; RESP 16; TEMP 36.5; O2SAT 97
[2021-05-22] MEDS: oxyCODONE/ACETAMINOPHEN (*CRX) 5-325 MG TABLET 1 TABLET PO ×2 (19:26→23:33)
[2021-05-23 02:58] VITALS: BP 103/56; PULSE 57; RESP 16; TEMP 36.1; O2SAT 97
[2021-05-23] MEDS: HYDROcodone/acetaminophen (*CRX) 5-325 MG TABLET 1 TAB PO (05:45)
[2021-05-23 05:53] LABS: Basophils Percent Auto 0.3 % (0.2-1.2); Eosinophils Absolute Auto 0.3 K/mm3 (0-0.3); Eosinophils Percent Auto 3.2 % (0-4.4); Hematocrit 38.5 % (37.0-47.0); Hemoglobin 12.5 g/dL (12.0-15.0); Immature Granulocyte Absolute 0.03 K/mm3 (0.00-0.031); Immature Granulocyte Percent A 0.4 % (0-0.5); Lymphocytes Absolute Auto 1.76 K/mm3 (0.9-3.2); Lymphocytes Percent Auto 22.9 % (18.3-44.2); Mean Corpuscular HGB Conc 32.5 g/dl (32-36); Mean Corpuscular Hemoglobin 30.6 pg (26-34); Mean Corpuscular Volume 94.4 fl (80-100); Mean Platelet Volume 8.7 fl (7.4-10.4); Monocytes Absolute Auto 0.6 K/mm3 (0.1-0.6); Monocytes Percent Auto 7.4 % (2.6-8.5); Neutrophils Absolute Auto 5.1 K/mm3 (1.3-6.7); Neutrophils Percent Auto 65.8 % (45.5-73.1); Platelet Count Result 282 k/mm3 (150-375); Red Blood Count 4.08 M/mm3 (4.2-5.4); Red Cell Distribution Width 12.3 % (11.5-14.5); White Blood Count 7.7 K/mm3 (4.5-10.0)
[2021-05-23 06:10] LABS: Alanine Aminotransferase 37 U/L (4-35); Albumin Level 3.9 g/dL (3.5-5.1); Alkaline Phosphatase 61 U/L (38-126); Anion Gap 7 mmol/L (8-16); Aspartate Amino Transferase 24 U/L (14-36); Bilirubin,Total 0.2 mg/dL (0.2-1.3); Blood Urea Nitrogen 10 mg/dL (7-17); Calcium 9.4 mg/dL (8.4-10.2); Carbon Dioxide 26 mmol/L (22-30); Chloride 104 mmol/L (98-107); Estimated CRCL calculation 93 ml/min; Estimated Glomerular Filt Rate > 60; Glucose 97 mg/dL (65-110); Potassium 4.1 mmol/L (3.4-5.0); Sodium 137 mmol/L (137-145)
[2021-05-23] MEDS: VITAMIN B COMPLEX CAPSULE 1 CAP PO (08:37)
[2021-05-23] MEDS: MESALAMINE 400 MG DELAYED RELEASE CAPSULE 1200 MG PO (08:37)
[2021-05-23] MEDS: VENLAFAXINE HCL XR 75 MG CAP.ER.24H PO (08:37)
[2021-05-23] MEDS: FLUTICASONE PROPIONATE 0.05% NA SPR 16 GM BTL (*BKC) 1 SPRAY NASAL (08:37)
[2021-05-23] MEDS: SPIRONOLACTONE 50 MG TABLET 100 MG PO (08:38)
[2021-05-23] MEDS: THERAPEUTIC MULTIVITAMINS/MINERALS TAB (*BKC) 1 TABLET PO (08:38)
--- NOTE | 2021-05-23 10:29 | PM.DS ---
DS: Admitting Diagnosis Discharge Date 05/23/21 Admitting Diagnosis Diverticulitis DS: Discharge Diagnosis Discharge Diagnosis (1) Perforation of sigmoid colon due to diverticulitis: Code(s): K57.20 - Diverticulitis of large intestine with perforation and abscess without bleeding Status: Acute Assessment and Plan: The patient presented to the hospital for evaluation of abdominal pain for the last couple of days, found to have micro perforation on CT scan. Leukocytosis resolved, afebrile Tx with IV Zosyn General surgery evaluated the patient and has advanced her to a low fiber diet, tolerating okay. Having some diarrhea could be secondary to abx or the diverticulitis Overall pain is significantly improved, cleared for discharge by surgery, will dc home with 7 days oral abx and pain medication. All questions and concerns addressed. Pt being discharged home in stable condition. GI follow up as she is due for colonoscopy and would like to establish with one of our gastroenterologists. (2) Dilated pancreatic duct: Code(s): K86.89 - Other specified diseases of pancreas Status: Acute Assessment and Plan: Regarding mild enlargement of the pancreatic duct, the patient wishes to follow-up with her primary care provider as she wants to go somewhere where she can have an open MRI due to claustrophobia and anxiety. Discussed with the patient who would like to try MRI, but when we called down her head would be in the tunnel and she states her anxiety and claustrophobia would be to high and she would not be able to do it. She understands the importance of following up with this imaging as an outpatient, order will be provided and she is also following up with her PCP and GI. (3) Elevated blood pressure reading: Code(s): R03.0 - Elevated blood-pressure reading, without diagnosis of hypertension Status: Acute Assessment and Plan: Her blood pressure was a bit elevated on arrival, likely due to pain. Has remained stable since that time. (4) Crohn's disease: Code(s): K50.90 - Crohn's disease, unspecified, without complications Status: Chronic Assessment and Plan: Her Crohn's disease is stable on mesalamine and she has not had problems for many years. She plans to establish care with one of our GI physicians. (5) Tobacco abuse: Code(s): Z72.0 - Tobacco use Status: Acute Assessment and Plan: Smoking cessation is encouraged and was discussed for 3 minutes. She denies the need for nicotine patch. DS: Summary Hospital Course Reason for hospitalization: 46-year-old female with history of Crohn's disease admitted to the hospital for diverticulitis with micro perforation. Please see HPI for further details. Hospital Course: Please see above for details of hospital course. Time spent discussing smoking cessation with patient: 3 to 10 minutes Status at Discharge Cognitive/behavioral status at discharge: stable Functional status at discharge: independent ambulation Overall status at discharge: patient is progressing back to baseline Time Spent with Patient Time attestation: Total time spent providing and/or coordinating discharge services: 35 Time spent: Greater than 30 minutes Exam Narrative: General: NAD, non toxic appearing Skin: No jaundice or cyanosis. Good skin turgor. Neck: Full range of motion. Supple. Respiratory: Lungs are clear to auscultation bilaterally. No bony chest wall tenderness. Cardiovascular: The heart has a regular rate and rhythm without murmur. Lower extremities: No lower extremity edema. Distal pulses are easily palpated. No calf tenderness to palpation. Gastrointestinal:
== END 2021-05-23 11:49 | disposition home or self-care (01) | DRG 392 ==
LOC: ANHED 13:20 → ANH3MED 14:03
PROVIDERS: Emergency Medicine; Physician Assistant; Admitting Provider Internal Medicine; Emergency Provider Emergency Medicine; PCP Family Medicine; Visit Provider Physician Assistant
DX: K57.20 Diverticulitis of large intestine with perforation and abscess without bleeding (principal); K50.90 Crohn's disease, unspecified, without complications; K86.89 Other specified diseases of pancreas; R03.0 Elevated blood-pressure reading, without diagnosis of hypertension; F90.9 Attention-deficit hyperactivity disorder, unspecified type; F17.210 Nicotine dependence, cigarettes, uncomplicated
CPT/HCPCS: 36415; 74177; 80048; 80053; 81001; 81025; 83690; 83735; 85025; 85027; 87086; 96361; 96365; 96366; 96375; 96376; 99285; A9270; G0378; J2270; J2543; J7030; Q9967

== ENCOUNTER → 2021-06-14 09:34 | Outpatient (CLI) | payer OTHER, SELFPAY ==
--- NOTE | ~2021-06-14 | MR_ITS ---
EXAMINATION: MR MRCP wo/w con/w 3D wo ind DATE: 06/14/2021 10:59 INDICATION: Other specified diseases of pancreas. Enlarged pancreatic duct. TECHNIQUE: Magnetic resonance imaging (MRI) of the abdomen was performed without and with 13 mL Multi Erasto intravenous contrast. Sequences included coronal T2-weighted FS FSE, coronal T2-weighted FSE, a xial T1-weighted LAVA, coronal FS FIESTA, axial dual-echo T1-weighted SPGR, coronal lava-FLEX, sagitt al T2-weighted FSE, axial T2-weighted FSE, and axial DWI. Thick-slab T2-weighted FSE images were obta ined for magnetic resonance cholangiopancreatography (MRCP). Maximum intensity projection 3-D reconst ructions of the volumetric data were created by the technologist. Postcontrast sequences included cor onal LAVA-flex and time course of axial T1-weighted LAVA. COMPARISON: CT abdomen and pelvis 05/19/2021, 05/11/2010 FINDINGS: ABDOMEN MRI: Breast implants are noted. There is a 5 mm cyst in the liver. There is a 1.8 cm hyperenh ancing mass in the liver, not visible on 05/11/10. No washout. The gallbladder, spleen, pancreas, and adrenal glands are normal. There are peripelvic cysts in the kidneys measuring up to 3.0 cm on the l eft. There are no dilated loops of bowel. There are no pathologically enlarged lymph nodes. There is no free intraperitoneal fluid. ABDOMEN MRCP: The common duct is normal and measures 3 mm. No choledocholithiasis. The pancreatic harriet t is normal and measures up to 4 mm in the head of the pancreas. IMPRESSION: 1. Normal pancreas. 2. 1.8 cm hyperenhancing liver mass. In the absence of known malignancy or chronic liver disease, thi s finding is likely a hemangioma or focal nodular hyperplasia. Reviewed, dictated and finalized at location A. DRIVER ENGINEER IMPRESSION: 1. Normal pancreas. 2. 1.8 cm hyperenhancing liver mass. In the absence of known malignancy or telecom coordinator leesa liver disease, this finding is likely a hemangioma or focal nodular hyperpl jayla.
== END ==
PROVIDERS: Visit Provider Nurse Practitioner Gerontology
DX: K86.89 Other specified diseases of pancreas (principal)
CPT/HCPCS: 74183; 76376; A9577

== ENCOUNTER → 2022-01-09 08:00 | Outpatient (CLI) | payer SELFPAY ==
--- NOTE | ~2022-01-09 | US_ITS ---
EXAMINATION: US abdomen complete DATE: 01/09/2022 08:35 INDICATION: Abnormal liver enzymes TECHNIQUE: Multiple grayscale and Doppler ultrasound images of the abdomen were obtained. COMPARISON: MRCP 06/14/2021. FINDINGS: Visualized portions of the pancreas are normal. The liver is normal with normal echogenicit y and echotexture. No surface nodularity. Normal hepatopetal flow in the main portal vein. The gallbl adder is normal with no abnormal wall thickening, pericholecystic fluid or stones. The normal common bile duct measures 6 mm. There was no sonographic Bhakta sign. The visualized portions of the aorta a nd inferior vena cava are normal. The right kidney measures 11.2 x 4.7 x 4.7. The left kidney measures 12.2 x 6.5 x 5.8. The kidneys de monstrate normal parenchymal echogenicity. There is bilateral parapelvic cysts. The spleen is normal in appearance and measures 8.2 cm. IMPRESSION: 1. Normal abdominal ultrasound findings. Reviewed, dictated and finalized at location K.
== END ==
PROVIDERS: PCP Family Medicine; Visit Provider Nurse Practitioner Gerontology
DX: R74.8 Abnormal levels of other serum enzymes (principal)
CPT/HCPCS: 76700

== ENCOUNTER 2022-02-05 09:06 | Outpatient (CLI) | payer OTHER, SELFPAY ==
--- NOTE | ~2022-02-05 | MM_ITS ---
EXAMINATION: MM scrn erica implant BI w yana HISTORY: Screening mammogram TECHNIQUE: Craniocaudal and mediolateral oblique 3-D tomosynthesis images with implant displacement a nd synthetic 2-D images were generated. Craniocaudal and mediolateral oblique views of the breasts wi thout implant displacement were obtained using full field digital mammography. CAD analysis was submi tted and interpreted. COMPARISON: 12/28/2020, , 06/09/2018 bilateral implant screening mammogram examinations BREAST PARENCHYMAL COMPOSITION: The breasts are heterogeneously dense, which may obscure small masses . FINDINGS: There is no evidence of suspicious mass, calcification, or architectural distortion to sugg est malignancy in either breast. There has been no suspicious interval change. IMPRESSION: 1. No mammographic evidence of malignancy. 2. Recommend routine screening mammography in one year. BI-RADS Category 1: Negative Reviewed, dictated and finalized at location A.
== END 2022-02-05 09:07 | disposition home or self-care (01) ==
PROVIDERS: PCP Family Medicine; Visit Provider Family Medicine
DX: Z12.31 Encounter for screening mammogram for malignant neoplasm of breast (principal)
CPT/HCPCS: 77063; 77067

== ENCOUNTER → 2023-04-24 11:27 | Outpatient (CLI) | payer OTHER, SELFPAY ==
--- NOTE | ~2023-04-24 | MM_ITS ---
EXAMINATION: MM scrn erica implant BI w yana HISTORY: Screening mammogram TECHNIQUE: Craniocaudal and mediolateral oblique 3-D tomosynthesis images with implant displacement a nd synthetic 2-D images were generated. Craniocaudal and mediolateral oblique views of the breasts wi thout implant displacement were obtained using full field digital mammography. CAD analysis was submi tted and interpreted. COMPARISON: 02/05/2022, 12/28/2020, 07/28/2019 BREAST PARENCHYMAL COMPOSITION: There are scattered areas of fibroglandular density. FINDINGS: There is no evidence of suspicious mass, calcification, or architectural distortion to sugg est malignancy in either breast. There has been no suspicious interval change. IMPRESSION: 1. No mammographic evidence of malignancy. 2. Recommend routine screening mammography in one year. BI-RADS Category 1: Negative Reviewed, dictated and finalized at location A.
== END ==
PROVIDERS: Visit Provider Family Medicine
DX: Z12.31 Encounter for screening mammogram for malignant neoplasm of breast (principal)
CPT/HCPCS: 77063; 77067

== ENCOUNTER 2024-06-25 10:21 | Outpatient (CLI) | payer OTHER, SELFPAY ==
--- NOTE | ~2024-06-25 | MM_ITS ---
EXAMINATION: MM scrn erica implant BI w yana HISTORY: Screening mammogram TECHNIQUE: Craniocaudal and mediolateral oblique 3-D tomosynthesis images with implant displacement a nd synthetic 2-D images were generated. Craniocaudal and mediolateral oblique views of the breasts wi thout implant displacement were obtained using full field digital mammography. CAD analysis was submi tted and interpreted. COMPARISON: 04/24/2023, 03/08/2022 BREAST PARENCHYMAL COMPOSITION: The breasts are heterogeneously dense, which may obscure small masses . FINDINGS: There is no evidence of suspicious mass, calcification, or architectural distortion to sugg est malignancy in either breast. There has been no suspicious interval change. IMPRESSION: No mammographic evidence of malignancy. Recommend routine screening mammography in one year. BI-RADS Category 1: Negative Reviewed, dictated and finalized at [facility]. E BRINE TESTER
== END 2024-06-25 10:22 | disposition home or self-care (01) ==
LOC: MICIMG 10:22
PROVIDERS: PCP Nurse Practitioner; Visit Provider Nurse Practitioner
DX: Z12.31 Encounter for screening mammogram for malignant neoplasm of breast (principal)
CPT/HCPCS: 77063; 77067

== ENCOUNTER 2025-04-22 08:23 | Outpatient (CLI) | payer OTHER, SELFPAY ==
--- NOTE | ~2025-04-22 | CT_ITS ---
EXAMINATION:CT lung screening DATE: 04/22/2025 08:41 INDICATION: Personal history of nicotine dependence. TECHNIQUE: Computed tomography (CT) of the chest was performed without intravenous contrast. Automated exposure control and iterative reconstruction technique were employed. The dose-length product (DLP) was 41.77 mGy-cm. COMPARISON: CT abdomen and pelvis 05/19/2021 FINDINGS: There are few scattered 2 mm nodules in the lungs. There is a 3 mm nodule in left lower lobe. There is no pneumonia or pleural effusion. The heart size is normal. No pericardial effusion. There are bilateral breast implants. There are peripelvic cysts in left kidney. There is moderate thoracic spondylosis. IMPRESSION: 1. Lung-RADS category 2: Benign appearance or behavior. Continue annual screening with noncontrast low-dose chest CT in 12 months. Reviewed, dictated and finalized at location [facility]. IMPRESSION: 1. Lung-RADS category 2: Benign appearance or behavior. Continue annual screeni ng with noncontrast low-dose chest CT in 12 months.
== END 2025-04-22 08:24 | disposition home or self-care (01) ==
LOC: MICIMG 08:24
PROVIDERS: PCP Family Medicine; Visit Provider Family Medicine
DX: Z12.2 Encounter for screening for malignant neoplasm of respiratory organs (principal); Z87.891 Personal history of nicotine dependence
CPT/HCPCS: 71271